=== PATIENT | male | born 1945 | race Caucasian/White ===

== ENCOUNTER 2018-11-02 23:41 | Emergency (ER) | payer MEDICARE, BC, OTHER ==
[2018-11-03] MEDS: ACETAMINOPHEN 500 MG TAB PO (02:13)
[2018-11-03] MEDS: DIPHTH/TET/ACEL PERTUSS (ADULT) 0.5 ML VIAL IM* (02:14)
[2018-11-03] MEDS: FLUORESCEIN STRIP LEFT EYE (04:44)
[2018-11-03] MEDS: TETRACAINE 0.5% 4 ML OPH LEFT EYE (04:44)
[2018-11-03] MEDS: morphine 2 MG INJ IV (04:45)
[2018-11-03] MEDS: IBUPROFEN 600 MG TAB PO (06:44)
[2018-11-03] MEDS: AMPICILLIN/SULB 3 GM/NS (PMX) 100 ML IVPB (06:51)
== END 2018-11-03 11:00 | disposition short-term general hospital (02) ==
LOC: FTE 23:41 → E/R 11-03 11:00
DX: S02.32XB Fracture of orbital floor, left side, initial encounter for open fracture (principal); H11.32 Conjunctival hemorrhage, left eye; H05.20 Unspecified exophthalmos; I10 Essential (primary) hypertension; E11.9 Type 2 diabetes mellitus without complications; X99.9XXA Assault by unspecified sharp object, initial encounter; Z23 Encounter for immunization
CPT/HCPCS: 70450; 70480; 70486; 82962; 90471; 90715; 96374; 99285-25